=== PATIENT | female | born 1990 | race Caucasian/White ===

== ENCOUNTER 2017-06-07 22:40 | Emergency (ER) | payer OTHER ==
[2017-06-08] MEDS: metroNIDAZOLE (FLAGYL) 500 MG TAB PO ×2 (00:30→00:50)
[2017-06-08] MEDS: DOXYCYCLINE HYCLATE 100 MG TAB PO ×2 (00:30→00:51)
== END 2017-06-08 01:52 | disposition home or self-care (01) ==
LOC: M ED 22:40
DX: S61.233A Puncture wound without foreign body of left middle finger without damage to nail, initial encounter (principal); W55.01XA Bitten by cat, initial encounter; Y92.410 Unspecified street and highway as the place of occurrence of the external cause; Y93.K9 Activity, other involving animal care; Y99.9 Unspecified external cause status; Z79.899 Other long term (current) drug therapy; Z88.0 Allergy status to penicillin
CPT/HCPCS: 73140